=== PATIENT | male | born 1960 | race Caucasian/White ===

== ENCOUNTER 2016-11-01 08:36 | Emergency (ER) | payer OTHER ==
[~2016-11-01] VITALS: Ht 162.6 cm; Wt 59.1 kg
[2016-11-01 08:42] VITALS: BP 145/75; PULSE 69; RESP 12; O2SAT 99
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
[2016-11-01] MEDS ORDERED: Lidocaine 1%-Epi 1:100,000 50 mL Inj SUBQ ONE (09:50)
[2016-11-01] MEDS ORDERED: Lidocaine 1%/Epi 1:100,000 30 mL MDV ONE (09:51)
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
[2016-11-01] MEDS ORDERED: CEPH-512 PO (11:34)
[2016-11-01] MEDS ORDERED: TdaP Vaccine 0.5 mL Inj IM ONE (11:35)
[2016-11-01] MEDS ORDERED: Bacitracin Ointment Packet TOPICAL ONE (11:35)
[2016-11-01] MEDS ORDERED: HYDR-4003 PO (11:49)
[2016-11-01 11:56] VITALS: BP 134/83; PULSE 56; RESP 16; O2SAT 96
== END 2016-11-01 11:57 | disposition home or self-care (01) ==
LOC: SED 08:36
DX: S01.81XA Laceration without foreign body of other part of head, initial encounter (principal); Y08.02XA Assault by strike by baseball bat, initial encounter; Y93.9 Activity, unspecified; Y92.9 Unspecified place or not applicable; Y99.9 Unspecified external cause status; Z23 Encounter for immunization; Z88.5 Allergy status to narcotic agent